=== PATIENT | male | born 1985 | race Caucasian/White ===

== ENCOUNTER 2021-11-28 17:15 | Emergency (ER) | payer OTHER, SELFPAY ==
[2021-11-28 17:17] VITALS: BP 159/108; PULSE 89; RESP 15; TEMP 36.6; O2SAT 97; BMI 32.3
--- NOTE | 2021-11-28 18:07 | EX.ED.GENINJ ---
HPI History of Present Illness Chief Complaint: Laceration Detail of Chief Complaint: Lip laceration Informant: patient and spouse/S.O. Onset/Context/Timing Onset: Today and Hours Current Severity: Mild Maximum Severity: Mild Associated Symptoms Associated Symptoms: Negative for Parasthesias, Weakness, Loss of function, Inability to ambulate, Loss of consciousness and Amnesia Narrative Narrative: 36-year-old male tetanus up-to-date. Patient was splitting wood today when a piece of wood came up and struck him in his mouth causing a laceration to the right upper lip and the right lower lip. The lower lip laceration is minor and may not need to be repaired. He denies any other injuries. Tetanus Immunization: 5-10 years Prior similar symptoms: No Recent Illness/Hospitalization: No PFSH PFSH Medical History History of torn meniscus of right knee Home Medications NK 11/28/21 [History Last Taken Unknown] Allergy/AdvReac Type Severity Reaction Status Date / Time No Known Allergies Allergy Verified 11/28/21 17:16 Surgical History Hx of appendectomy Social History Smoking Status: Never smoker ROS ROS ED ROS Narrative Denies recent illness. Review of Systems ROS Unobtainable: Denies due to encephalopathy Constitutional Constitutional ED: Denies fever(s) Eyes Eyes: Denies change in vision ENT ENT ED: Denies ear pain Cardiovascular Cardiovascular: Denies chest pain Respiratory/Chest Respiratory/Chest: Denies dyspnea Gastrointestinal Gastrointestinal: Denies abdominal pain, nausea or vomiting Genitourinary Genitourinary ED: Denies dysuria Musculoskeletal Musculoskeletal: Denies myalgias Integumentary Denies rash Neurologic Neurologic: Denies headache(s) Psychiatric Psychiatric: Denies depression Endocrine Endocrinology: Denies polyuria Hematologic/Lymphatic Hematologic/Lymphatic: Denies easy bruising Allergic/Immunologic Allergic/Immunologic ED: Denies urticaria EXAM Physical Exam Narrative Exam Narrative: 36-year-old male no acute distress. Vital signs stable afebrile. H EENT exam is right upper lip has a laceration involving the skin and a very initial part of the remaining border. It'll need to be closed. It does gape. There is minimal oozing. No foreign body. The right lower lip has a more superficial linear laceration that the patient I discussed and he is choosing not to have that repaired and most likely does not need it and will cosmetically do well. He has a chip of his right upper tooth but he said that its been there. Otherwise his dentition is intact. Rest of his head and neck are unremarkable. Lungs are clear. Heart regular rhythm. Chest wall nontender. Abdomen soft nontender. Patient is moving all 4 extremities. Neurovascular intact. Neurologic exam normal. Const Vital Signs: 11/28/21 17:17 Temperature 97.9 F Temperature Source Temporal Pulse Rate 89 Respiratory Rate 15 Blood Pressure 159/108 H Blood Pressure Mean 125 Pulse Ox 97 Oxygen Delivery Method Room Air Positive well nourished and well developed; Negative for obese, cachectic, contractures or unkempt General Appearance ED: well developed and NAD; Negative for unkempt, cachectic or contractures Nutritional Appearance: Negative for cachectic or obese HEENT HEENT Narrative: Right upper and lower lip lacerations. Right upper lip will need repaired. trauma; Negative for atraumatic Eyes PERRL and EOMs intact bilaterally Neck full ROM General: Negative for tenderness Chest Wall inspection of chest normal and palpation of chest normal Resp normal respiratory effort and clear to auscultation bilaterally Auscultation: Negative for rales, rhonchi or wheezes Cardio regular rhythm, S1 normal heart sound, S2 normal heart sound and no murmurs Rate: regular rate GI normal to inspection, nondistended, normoactive bowel sounds, non-tender, non-distended and no masses Auscultation: normoactive bowel sounds Palpation: soft; Negative for tender, guarding or rebound tenderness present Back/Spine normal to inspection and no thoracic nor lumbar tenderness General Back: Negative for CVA tenderness Extremity normal to inspection and full ROM General Extremety ED: Negative for deformity, edema or tenderness General Extremity: Negative for deformity or edema Neuro oriented x3, moves all extremities and no focal motor deficits Sensorium / Orientation: alert, oriented to person, oriented to place and oriented to time; Negative for orientation impaired, lethargic or stuporous Motor Exam: strength 5/5 throughout Psych mental status grossly normal and thought process normal Appearance: Negative for unkempt Mood & Affect: Negative for depressed or tearful Skin no rashes or lesions noted and No no wounds Skin Narrative: Right upper and lower lip laceration. Wounds: wounds noted PROC Procedures Lacerations Right lower lip laceration: Length: 0.59 in Depth: Skin Shape: Linear Prep: Sterile Conditions and Shure-Clens Laceration repair: Lidocaine, Local and Wound explored Suture Information: Ethilon and 5-0 Comment: Local anesthetic. Right lower lip laceration 1.5 cm. Cleaned with Shur-Clens. Washed with saline. Explored. Closed using number two 5-0 Ethilon sutures. Proper hemostasis wound closure obtained. Patient tolerated procedure well. Right upper lip laceration: Length: 0.79 in Depth: Sub Q Shape: Linear Prep: Sterile Conditions and Shure-Clens Laceration repair: Irrigated, Lidocaine, Local and Wound explored Number of Sutures/[place]: 4 Suture Information: Ethilon and 5-0 Comment: Right upper lip laceration. 2 cm. Involving the remaining border. Anesthetized with lidocaine. Strands washed with Shur-Clens, saline and explored. Closed using number four 5-0 Ethilon sutures. Proper hemostasis and wound closure was obtained. Patient tolerated procedure well. MDM MDM MDM Narrative Medical decision making narrative: Right lower lip will be cleaned. Explored. Right upper lip will be locally anesthetized with lidocaine. Closed. Tetanus is already up-to-date. Discharge Plan Triage Chief Complaint: Laceration ED Provider: Chriss Dalal Dx/Rx/DC Orders Clinical Impression: Laceration of lip Instructions: ED Laceration, Lip or Mouth Prescriptions: No Action NK RF: 0 Primary Care Provider: Melecio Villegas Referrals: Melecio Villegas MD [Primary Care Provider] - 7 Days for suture removal Activity Restrictions/Additional Instructions: Clean wounds daily with peroxide and water. Watch for any signs of infection such as pus, redness or fever seen return. Stitches out in 7 days. Ice to the area to decrease pain and swelling. Motrin and Tylenol for pain. Disposition Disposition: Home, Self Care
[2021-11-28] MEDS: Lidocaine 1% (20 ml mdv) 20 ML Vial 10 ML INFILT (19:00)
== END 2021-11-28 19:44 | disposition home or self-care (01) ==
PROVIDERS: Emergency Provider Emergency Medicine; PCP Family Medicine; Visit Provider Emergency Medicine
DX: S01.511A Laceration without foreign body of lip, initial encounter (principal); W26.8XXA Contact with other sharp object(s), not elsewhere classified, initial encounter; Y93.9 Activity, unspecified; Y92.9 Unspecified place or not applicable
CPT/HCPCS: 12013; 99284